=== PATIENT | male | born 1995 | race Caucasian/White ===

== ENCOUNTER 2024-10-07 18:13 | Emergency (ER) | payer OTHER, SELFPAY ==
[2024-10-07] VITALS (12 sets, daily range): BP systolic 113–124; BP diastolic 79–82; PULSE 77–92; RESP 16–20; TEMP 36.6; O2SAT 98–100; BMI 27.8
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
--- NOTE | 2024-10-07 18:47 | CRLHL7_ITS ---
For Patients: As a result of the Cures Act, medical imaging exams and procedure reports are released immediately into your electronic medical record. You may view this report before your referring provider. If you have questions, please contact your health care provider. INDICATION: Chest pain. TECHNIQUE: Chest/right ribs, 3 views. COMPARISON: None. FINDINGS: Cardiovascular and mediastinum: Heart size and vasculature are normal in caliber and appearance. Lungs and pleural spaces: Lungs are clear. No sign of infiltrate or mass. No sign of pleural effusion. No pneumothorax. Bones and soft tissues: Acute nondisplaced right 4th, 5th, 6th rib fractures. IMPRESSION: Acute nondisplaced right 4th, 5th, 6th rib fractures. Dictated by Giancarlo Saldana MD @ 10/07/2024 7:34:22 PM (Electronically Signed)
--- NOTE | 2024-10-07 18:47 | CRLHL7_ITS ---
For Patients: As a result of the Cures Act, medical imaging exams and procedure reports are released immediately into your electronic medical record. You may view this report before your referring provider. If you have questions, please contact your health care provider. INDICATION: Pain. TECHNIQUE: Cervical spine 3 view. COMPARISON: None. FINDINGS: Bones: Alignment is normal. No displaced fractures or significant bone lesions. Joints: Disc spaces and facets are unremarkable. Soft tissues: Unremarkable. Dictated by Giancarlo Saldana MD @ 10/07/2024 7:30:33 PM (Electronically Signed)
--- NOTE | 2024-10-07 18:47 | CRLHL7_ITS ---
For Patients: As a result of the Cures Act, medical imaging exams and procedure reports are released immediately into your electronic medical record. You may view this report before your referring provider. If you have questions, please contact your health care provider. Indication: Trauma. Technique: Right shoulder, 2 views. Comparison: None. Findings/Impression: Bones: Alignment is normal. No displaced fractures or bone lesions. Joint spaces: Unremarkable. Soft tissues: Unremarkable. Dictated by Giancarlo Saldana MD @ 10/07/2024 7:31:38 PM (Electronically Signed)
--- NOTE | 2024-10-07 19:03 | CRLHL7_ITS ---
For Patients: As a result of the Century Cures Act, medical imaging exams and procedure reports are released immediately into your electronic medical record. You may view this report before your referring provider. If you have questions, please contact your health care provider. INDICATION: Trauma. TECHNIQUE: CT chest, with 75 cc Isovue 370 IV contrast. COMPARISON: Same day chest radiograph FINDINGS: CHEST: Cardiovascular structures: Heart size is normal. Thoracic aorta and main pulmonary artery are normal in caliber. No filling defect in the central pulmonary vasculature. Mediastinum and lucía: No mass or adenopathy. Small amount of residual thymic tissue in the anterior mediastinum, benign. Lungs and pleura: Lungs and pleural spaces are clear. No suspicious nodules, infiltrates, or effusions. No pulmonary contusion. Chest wall and axilla: No mass or adenopathy. Bones: Acute, nondisplaced fractures of the right anterolateral 3rd through 7th rib fractures. Acute, nondisplaced fractures of the right posterior 4th through 8th rib fractures. Upper abdomen: No traumatic injury of the liver. Gallbladder is unremarkable. Normal CT appearance of the pancreas, spleen and bilateral kidneys are unremarkable. Nonobstructive bowel in the visualized upper abdomen. IMPRESSION: 1. Acute nondisplaced fractures of the right 3rd through 8th ribs. The right 4th through 7th rib fractures are segmental compatible with flail segment. Recommend surgical consultation and correlate for flail chest. 2. No pulmonary contusion or pneumothorax/hemothorax. No traumatic injury of the liver or visualized upper abdomen. Please note that all CT scans at this facility use dose modulation, iterative reconstruction, and/or weight-based dosing when appropriate to reduce radiation dose to as low as reasonably achievable. Dictated by Carlo Mohan MD @ 10/07/2024 7:52:29 PM (Electronically Signed)
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
[2024-10-07] MEDS: ONDANSETRON 2 MG/ML inj 4 MG IVP (19:15)
--- NOTE | 2024-10-07 19:16 | ED.NURSE ---
IV established and zofran given in radiology room.
[2024-10-07] MEDS: MORPHINE 4 MG/ML INJ IVP (19:33)
[2024-10-07 19:39] LABS: Appearance Urine Clear (Clear)
--- NOTE | 2024-10-07 19:48 | CRLHL7_ITS ---
For Patients: As a result of the Cures Act, medical imaging exams and procedure reports are released immediately into your electronic medical record. You may view this report before your referring provider. If you have questions, please contact your health care provider. Indication: Trauma. Technique: Right ankle, 3 views. Comparison: None. Findings/Impression: Bones: Alignment is normal. No displaced fractures or bone lesions. Joint spaces: Unremarkable. Soft tissues: Unremarkable. Dictated by Giancarlo Saldana MD @ 10/07/2024 8:35:30 PM (Electronically Signed)
[2024-10-07 19:51] LABS: Other Sediment Urine Few
--- NOTE | 2024-10-07 19:52 | ED.NURSE ---
pt complaining of right ankle pain, new from original assessment. MD informed, xray ordered.
[2024-10-07 20:05] LABS: Hematocrit 44.9 % (37.0-53.0); Hemoglobin* 15.1 gm/dL (13.5-17.5); Immature Granulocytes Pct Auto 0.3 %; Mean Corpuscular HGB Conc 34 gm/dL (32-36); Mean Corpuscular Hemoglobin 30 pg (26-34); Mean Corpuscular Volume 89 fL (80-100); RDW Coefficient of Variation % 12.3 % (11.5-15.5); Red Blood Count 5.07 m/uL (4.30-5.90); White Blood Count* 14.97 K/uL (4.50-11.00)
--- NOTE | 2024-10-07 20:16 | ED.NURSE ---
pt wounds cleaned, right ankle, elbow, forearm and wrapped with gauze by electronics engineering technologist.
[2024-10-07 20:21] LABS: Chloride* 101 mmol/L (96-114); Immature Granulocytes Abs Auto 0.00 K/uL (0.00-0.30); Lymphocytes Absolute Auto 1.10 K/uL (0.90-2.90); Potassium* 3.7 mmol/L (3.6-5.1); Slide Review Reflex No; Sodium* 137 mmol/L (135-149)
[2024-10-07 20:23] LABS: Blood Urea Nitrogen* 17 mg/dL (5-24); Creatinine* 0.8 mg/dL (0.5-1.5); Est. Creatinine Clearance* 133.79; Estimated Glomerular Filt Rate 121 ml/min
[2024-10-07 20:24] LABS: Anion Gap 6 mEq/L (7-15); Calcium* 9.6 mg/dL (8.4-10.6); Carbon Dioxide* 30 mmol/L (20-32); Glucose* 116 mg/dL (60-115)
--- NOTE | 2024-10-07 20:38 | ED.NURSE ---
pt pain improving, 5/10 from 9/10 after morphine. No complaint of shortness of breath.
--- NOTE | 2024-10-07 21:52 | ED.NURSE ---
Report given to MARKETING DATABASE CONSULTANT, Marilee. [place] [facility] [place]
== END 2024-10-07 21:57 | disposition short-term general hospital (02) ==
PROVIDERS: Emergency Provider Student in an Organized Health Care Education/Training Program; PCP Surgery
DX: S22.5XXA Flail chest, initial encounter for closed fracture (principal)
CPT/HCPCS: 36415; 71101; 71260; 72040; 73030; 73610; 80048; 81001; 84484; 85025; 87086; 93005; 96374; 96375; 99285; J1171; J2270; J2405; Q9967

== ENCOUNTER 2024-10-07 21:42 | Outpatient (CLI) | payer OTHER, SELFPAY | END 2024-10-07 21:43 | disposition home or self-care (01) | PROVIDERS: PCP Surgery; Visit Provider Student in an Organized Health Care Education/Training Program | DX: S22.39XA Fracture of one rib, unspecified side, initial encounter for closed fracture (principal) | CPT/HCPCS: A0425; A0427 ==